=== PATIENT | female | born 1965 | race Caucasian/White ===

== ENCOUNTER 2017-01-11 09:23 | Inpatient (IN) | payer BC ==
[~2017-01-11] VITALS: Ht 162.6 cm; Wt 62.3 kg
[~2017-01-11 09:23] MED LIST: CARAFATE1 G1 PO; Motrin,Rufen800 MG PO; SPIRIVA18 MCG PO; SUNMARK OMEPRAZ20 M1 PO; SYNTHROID0.137 MG PO; TYLENOL W/CODEI1 TA4 PO
[2017-01-11 09:30] VITALS: BP 145/80
[2017-01-11] MEDS ORDERED: CLARITIN10 MG PO (09:30)
[2017-01-11] MEDS ORDERED: PREVACID30 M2 PO (09:30)
[2017-01-11] MEDS ORDERED: PROAIR HFA8.5 GM INH (09:30)
[2017-01-11 09:52] LABS: BASO % 0.4 % (0.0-1.0); EOS # 0.6 10*3/uL (0.0-0.4); EOS % 7.6 % (1.0-4.0); HEMATOCRIT 40.6 % (37.0-47.0); HEMOGLOBIN 13.4 g/dl (12.0-16.0); LYMPH # 2.8 10*3/uL (1.3-4.4); LYMPH % 39.3 % (27.0-41.0); MEAN CELL VOLUME 91.4 fl (81.0-99.0); MEAN CORPUSCULAR HGB 30.2 pg (27.0-31.0); MEAN PLATELET VOLUME 9.5 fl (9.6-12.3); MONO # 0.8 10*3/uL (0.1-1.0); MONO % 10.4 % (3.0-9.0); PLATELET COUNT AUTOMATED 286 10*3/uL (130-400); RED BLOOD COUNT 4.44 10*6/uL (4.10-5.10); RED CELL DISTRI WIDTH 13.4 % (0-14.5); WHITE BLOOD COUNT 7.2 10*3/uL (4.8-10.8)
[2017-01-11 10:01] LABS: INTERNATIONAL NORM RATIO 1.1 (2.0-3.5); PROTHROMBIN TIME 11.2 SECONDS (9.0-12.4)
[2017-01-11 10:09] LABS: ALBUMIN 3.8 gm/dl (3.1-4.5); ALKALINE PHOSPHATASE 124 U/L (45-117); BILIRUBIN, TOTAL 0.4 mg/dl (0.2-1.0); BUN 14 mg/dl (7-24); CARBON DIOXIDE 28 mmol/L (21-32); CHLORIDE 105 mmol/L (98-107); CKMB 4.6 ng/ml (0.5-3.6); CPK 286 U/L (26-192); EST GLOM FILT AFRICAN AMERICAN > 60 ml/min; GLUCOSE 92 mg/dL (65-99); MAGNESIUM 1.9 mg/dL (1.5-2.1); POTASSIUM 4.3 mmol/L (3.5-5.1); SGOT/AST 25 IU/L (3-35); SGPT/ALT 24 U/L (12-78); SODIUM 141 mmol/L (136-145); TOTAL PROTEIN 8.2 gm/dL (6.4-8.2)
[2017-01-11 10:24] LABS: C-REACTIVE PROTEIN < 0.29 MG/DL (0-0.3); TROPONIN I < 0.015 ng/ml (<0.045)
[2017-01-11] MEDS ORDERED: BIAXIN FILMTAB250 MG PO (12:04)
[2017-01-11 15:56] VITALS: BP 106/69
[2017-01-11 20:00] VITALS: BP 102/56
[2017-01-12] VITALS: BP 91/58
[2017-01-12 06:44] LABS: BASO % 0.1 % (0.0-1.0); HEMATOCRIT 37.8 % (37.0-47.0); HEMOGLOBIN 12.4 g/dl (12.0-16.0); IG # 0.1 10*3/uL (0.0-0.1); LYMPH # 1.5 10*3/uL (1.3-4.4); LYMPH % 11.6 % (27.0-41.0); MEAN CELL VOLUME 91.5 fl (81.0-99.0); MEAN CORPUSCULAR HGB CONC 32.8 g/dl (33.0-37.0); MEAN PLATELET VOLUME 9.8 fl (9.6-12.3); MONO # 0.6 10*3/uL (0.1-1.0); NEUT # 10.5 10*3/uL (2.3-7.9); NEUT % 82.4 % (47.0-73.0); PLATELET COUNT AUTOMATED 281 10*3/uL (130-400); RED BLOOD COUNT 4.13 10*6/uL (4.10-5.10); RED CELL DISTRI WIDTH 13.5 % (0-14.5); WHITE BLOOD COUNT 12.7 10*3/uL (4.8-10.8)
[2017-01-12 07:29] LABS: CHLORIDE 103 mmol/L (98-107); POTASSIUM 4.4 mmol/L (3.5-5.1); SODIUM 138 mmol/L (136-145)
[2017-01-12 07:43] LABS: ALBUMIN 3.4 gm/dl (3.1-4.5); ALKALINE PHOSPHATASE 104 U/L (45-117); BILIRUBIN, TOTAL 0.3 mg/dl (0.2-1.0); BUN 19 mg/dl (7-24); CARBON DIOXIDE 26 mmol/L (21-32); CHOLESTEROL 230 mg/dL (<200); EST GLOM FILT AFRICAN AMERICAN > 60 ml/min; FREE T4 1.33 ng/dl (0.76-1.46); GLUCOSE 195 mg/dL (65-99); HDL CHOLESTEROL 104 mg/dl (40-60); LDL CHOLESTEROL 110 mg/dL (9-159); SGOT/AST 15 IU/L (3-35); SGPT/ALT 21 U/L (12-78); TOTAL PROTEIN 7.4 gm/dL (6.4-8.2); TRIGLYCERIDES 81 mg/dl (<150); VLDL CHOLESTEROL 16 mg/dL (6-40)
[2017-01-12 08:00] VITALS: BP 102/88
[2017-01-12 12:00] VITALS: BP 118/71
[2017-01-12 16:00] VITALS: BP 100/76
[2017-01-12 20:00] VITALS: BP 107/56
[2017-01-13] VITALS: BP 100/60
[2017-01-13 08:00] VITALS: BP 106/60
[2017-01-13 11:58] VITALS: BP 104/73
[2017-01-13] MEDS ORDERED: VITAMIN D50000 I3 PO (12:20)
[2017-01-13] MEDS ORDERED: PREDNISONE10 MG PO (12:20)
[2017-01-13] MEDS ORDERED: LEVAQUIN500 M2 PO (12:23)
== END 2017-01-13 12:40 | disposition home or self-care (01) | DRG 192 ==
LOC: ED 09:23 → EDHOLD 10:55 → 4E 10:55
PROVIDERS: Emergency Medicine; Internal Medicine Hospice and Palliative Medicine
DX: J44.1 Chronic obstructive pulmonary disease with (acute) exacerbation (principal); I10 Essential (primary) hypertension; E03.9 Hypothyroidism, unspecified; J45.909 Unspecified asthma, uncomplicated; E11.9 Type 2 diabetes mellitus without complications; E55.9 Vitamin D deficiency, unspecified; K21.9 Gastro-esophageal reflux disease without esophagitis; Z82.49 Family history of ischemic heart disease and other diseases of the circulatory system; Z80.8 Family history of malignant neoplasm of other organs or systems; Z83.6 Family history of other diseases of the respiratory system; Z87.891 Personal history of nicotine dependence; Z90.5 Acquired absence of kidney; Z88.0 Allergy status to penicillin; Z79.899 Other long term (current) drug therapy

== ENCOUNTER 2018-12-04 20:20 | Inpatient (IN) | payer BC ==
[~2018-12-04] VITALS: Ht 162.6 cm; Wt 64.0 kg
--- NOTE | ~2018-12-04 | EKG ---
[place], [place] ELECTROCARDIOGRAM REPORT NAME: MARTIN JUAREZ UNIT #: [id number] ROOM: 502 DOCTOR: JAIDA DRAFT REPORT BIRTHDATE: [birth year] [facility] Test Date: 2018-12-04 Test Time: 20:50:57 Pat Name: MARTIN JUAREZ Department: Room: [facility] Gender: F Concession Manager: Ben Cordero : 1965 Requested By: GAMA MEZA PA-C Order Number: [id number] Reading MD: Asim Villegas MD Measurements Intervals Sidney Rate: 127 P: 87 ID: 134 QRS: 93 QRSD: 82 T: 46 QT: 273 QTc: 397 Interpretive Statements Sinus tachycardia Ventricular premature complex Aberrant complex Probable left atrial enlargement Borderline right axis deviation Abnormal R-wave progression, late transition Baseline wander in lead(s) V2 Electronically Signed On 12-09-2018 9:37:59 PST by Asim Villegas MD CM:EKGRPT:ELECTROCARDIOGRAM REPORT 49 6 GAMA MEZA PA-C EPIPHANY DRAFT REPORT GAMA MEZA PA-C
--- NOTE | ~2018-12-04 | CON ---
[place], [place] REPORT OF CONSULTATION NAME: MARTIN JUAREZ [facility] #: [id number] UNIT #: [id number] ROOM: 502 DOCTOR: MITCH FELIPE MD BIRTHDATE: [birth year] DOS: 12/06/2018 CONSULTATION REQUESTED: Hospitalist services. REASON FOR CONSULTATION: Assess the patient's acute exacerbation of chronic obstructive pulmonary disease. HISTORY OF PRESENT ILLNESS: The patient is a 53-year-old white female patient who has been reported symptoms of increased shortness of breath for the past 3 weeks. She was also complaining of excessive wheezing and tightness in the chest. The patient stated that she does not have any cough. However, during the assessment, she has been noted with symptoms of cough at times. She denies symptoms of hemoptysis. Currently, the patient sitting on the bed at time of the assessment using oxygen supplementation nasal cannula. She has been admitted to the hospital on of this month. She had a CTA of the chest done yesterday as well for the patient that excluded any evidence of pulmonary embolism. REVIEW OF SYSTEMS: CONSTITUTIONAL: Fatigue and tiredness noted without any symptoms of fever or chills. EYES: Denies burning, redness, or tenderness. EAR, NOSE, THROAT SYMPTOMS: Denies sore throat, hoarseness, otalgia, postnasal drainage or epistaxis. CARDIOVASCULAR: Denied anginal pain, edema, or pain of the lower extremities. GASTROINTESTINAL: Denies dysphagia, nausea, vomiting, diarrhea, abdominal pain, hematemesis, melena, or hematochezia. SKIN: Denies any lesions or rashes. GENITOURINARY: No dysuria, suprapubic pain, or hematuria. MUSCULOSKELETAL: No acute joint pain, redness, or tenderness. CENTRAL NERVOUS SYSTEM: Denies dizziness, headache, diplopia, or syncopal episodes. Remaining systems were reviewed with the patient, they were noted all negative. PAST MEDICAL HISTORY: 1. Reported with a diagnosis of chronic obstructive pulmonary disease as per patient, taking respiratory medications for that and managed by primary care physician, ____ 2. History of bronchial asthma. 3. Gastroesophageal reflux. 4. Hypothyroidism. 5. History of hyperlipidemia. PAST SURGICAL HISTORY: Noted partial nephrectomy in the right side. SOCIAL HISTORY: The patient stated that she is , lives at home, has 2 children. Smoking was noted from a teenager half a pack of cigarettes per day that was discontinued approximately in 2011. There was no history of alcohol use. Illicit drug use was reported. [place], [place] REPORT OF CONSULTATION NAME: MARTIN JUAREZ UNIT #: [id number] ROOM: [facility] DOCTOR: MITCH FELIPE MD BIRTHDATE: [birth year] CURRENT MEDICATIONS: Administered were noted as use of Lantus insulin, vitamin D, loratadine, Lovenox for deep vein thrombosis prophylaxis, Solu-Medrol 60 mg b.i.d., Mucinex, gemfibrozil, Protonix, levothyroxine, Rocephin, and Zithromax. ALLERGIES: NOTED WITH ALLERGY TO PENICILLINS. PHYSICAL EXAMINATION: GENERAL: A 53-year-old white female, currently sitting comfortable on the bed without any acute distress this morning of assessment. Height of 5 feet 4 inches, weight of 141 pounds, BMI 24.2. VITAL SIGNS: For the patient which were recorded normal in the last 48 hours. The respiratory rate range between 18-20. Heart rate of 90-126 on admission. Blood pressure 107/78-116/76. Pulse oxygen saturation recorded as 96% saturation at rest. Oxygen saturation on room air was recorded as 94% saturation. HEENT: Examination shows head was atraumatic. Eyes nonicterus. NECK: Supple. CARDIOVASCULAR: S1, S2 is audible. LUNGS: The patient has moderate degree breath sounds with expiratory wheezing. There were no crackles. ABDOMEN: Soft and nontender. Bowel sounds present. EXTREMITIES: Noted without any acute edema, clubbing or cyanosis. MUSCULOSKELETAL: Without any acute deformities. CENTRAL NERVOUS SYSTEM: The patient's cranial nerves 2-12 intact. LABORATORY DATA: CBC today: WBC count 15.9, hemoglobin 10.8, platelet count was normal. BMP of this morning, glucose 307, BUN and creatinine was normal. Admission CBC on 12/04/2018, WBC count 13,000, hemoglobin and hematocrit was normal. Lactic acid 2.7 on admission. PT/PTT were noted normal on 12/04/2018. CMP of the patient 12/04/2018, glucose 247, BUN normal, creatinine 1.06. Sodium rather 128, potassium normal, chloride of 93. LFTs normal except alkaline phosphatase minimally elevated 170. Chest x-ray 2 views, which was done on admission was noted without any acute pulmonary infiltration. CTA of the chest that was done on 12/05/2018, the patient does not show any evidence of pulmonary embolism. A 3 mm nodule identified, incidental finding in the right middle lobe. Bilateral changes appear like panlobular emphysema present in the upper lungs as well as in the lower lobes as well. There was no visible lymph nodes. IMPRESSION: 1. The patient will be currently admitted to the hospital noted with acute exacerbation of chronic obstructive pulmonary disease with acute bronchitis. There was no evidence of pneumonia. 2. Solitary pulmonary nodule right middle lobe at this time, required further assessment with outpatient assessment. We will just followup CT scan in about 6 months. 3. The patient with panlobular emphysema finding, rule out alpha-1 antitrypsin deficiency as well. 4. Past history of tobacco use as well. [place], [place] REPORT OF CONSULTATION NAME: MARTIN JUAREZ UNIT #: [id number] ROOM: [facility] DOCTOR: HOMER WYATT MD,MITCH BIRTHDATE: [birth year] PLAN OF MANAGEMENT: At this time, the patient is getting Solu-Medrol 60 mg b.i.d., the dose will be decreased to 40 mg b.i.d. for this patient as well. Bronchodilators. Continuation of the antibiotic for acute bronchitis management. Usual care. Ambulation was encouraged. Supportive therapy, plan of management and care plan for the patient as well. Alpha-1 antitrypsin level should be obtained as an outpatient to exclude the alpha 1 antitrypsin deficiency in this patient with current CT scan of the chest appearance. Followup CT scan of the chest should be done in 6 months to assess the current small pulmonary nodule. MITCH CORONEL MD CM:CONSTR:REPORT OF CONSULTATION 1227 12/06/18 1702 interface
--- NOTE | ~2018-12-04 | PR ---
[place], [place] PROGRESS NOTE NAME: MARTIN JUAREZ UNIT #: [id number] ROOM: 502 DOCTOR: HOMER WYATT MD,MITCH BIRTHDATE: [birth year] DOS: 12/07/2018 PULMONARY PROGRESS NOTE SUBJECTIVE: She has been noted comfortable at this time, resting in the bed without any acute distress. Denies symptoms of fever or chills. Coughing and other symptoms have been gradually subsiding. OBJECTIVE: VITAL SIGNS: Which have been recorded showed normal temperature, respiratory rate 18, heart rate 94, blood pressure 117/61. The pulse oxygen saturation on room air was 93% saturation. HEENT: Head was atraumatic. Eyes nonicterus. NECK: Supple. CARDIOVASCULAR: S1 and S2 audible. LUNGS: The patient was noted clear of any wheezing or crackles. ABDOMEN: Soft, nontender. Bowel sounds present. EXTREMITIES: Without any acute edema. IMPRESSION: 1. The patient with resolving acute exacerbation of chronic obstructive pulmonary disease, acute bronchitis, and other symptoms. 2. History of nicotine abuse previously. PLAN OF MANAGEMENT: Abstinence from tobacco use recommended. The patient could be discharged home today. Outpatient assessment to rule out alpha-1 antitrypsin deficiency is recommended. Supportive care, therapy, plan of management and care plan. MITCH CORONEL MD CM:PNTRANS 1230 [id number] MITCH WYATT MD 12/08/18 0037 interface
[~2018-12-04 20:20] MED LIST changes: +BIAXIN FILMTAB250 MG PO; +CLARITIN10 MG PO; +LEVAQUIN500 M2 PO; +PREDNISONE10 MG PO; +PREVACID30 M2 PO; +PROAIR HFA8.5 GM INH; +VITAMIN D50000 I3 PO
[2018-12-04 20:26] VITALS: BP 107/82
[2018-12-04 20:50] LABS: BASO % 0.2 % (0.0-1.0); EOS # 0.1 10*3/uL (0.0-0.4); EOS % 0.5 % (1.0-4.0); HEMATOCRIT 43.9 % (37.0-47.0); HEMOGLOBIN 14.6 g/dl (12.0-16.0); LYMPH # 3.1 10*3/uL (1.3-4.4); LYMPH % 24.1 % (27.0-41.0); MEAN CORPUSCULAR HGB 29.6 pg (27.0-31.0); MEAN CORPUSCULAR HGB CONC 33.3 g/dl (33.0-37.0); MEAN PLATELET VOLUME 10.6 fl (9.6-12.3); MONO # 1.4 10*3/uL (0.1-1.0); MONO % 10.7 % (3.0-9.0); NEUT # 8.3 10*3/uL (2.3-7.9); NEUT % 63.7 % (47.0-73.0); PLATELET COUNT AUTOMATED 329 10*3/uL (130-400); RED BLOOD COUNT 4.93 10*6/uL (4.10-5.10); RED CELL DISTRI WIDTH 11.9 % (0-14.5)
--- NOTE | 2018-12-04 20:57 | NUR ---
CRITICAL LAB 2.7 LACTIC ACID.. GAMA MEZA PA-C NOTIFIED
[2018-12-04 21:01] LABS: ACT PARTIAL THROMBO TIME 22.8 SECONDS (20.8-31.5); INTERNATIONAL NORM RATIO 1.2 (2.0-3.5)
[2018-12-04 21:10] LABS: BILIRUBIN NEGATIVE (NEGATIVE); BLOOD 2+ (NEGATIVE); CLARITY CLEAR (CLEAR); COLOR YELLOW (YELLOW); GLUCOSE 3+ (NEGATIVE); KETONE NEGATIVE (NEGATIVE); LEUKO ESTERASE NEGATIVE (NEGATIVE); NITRITE NEGATIVE (NEGATIVE); UROBILINOGEN 0.2 E.U./dl (0.2-1.0)
[2018-12-04 21:15] LABS: ALBUMIN 3.1 gm/dl (3.1-4.5); ALKALINE PHOSPHATASE 170 U/L (45-117); BUN 14 mg/dl (7-24); CHLORIDE 93 mmol/L (98-107); CREATININE 1.06 mg/dL (0.55-1.02); SGOT/AST 12 IU/L (3-35); SGPT/ALT 23 U/L (12-78); SODIUM 128 mmol/L (136-145); TOTAL PROTEIN 7.7 gm/dL (6.4-8.2)
[2018-12-04 21:18] LABS: TROPONIN I < 0.015 ng/ml (<0.045)
[2018-12-04 21:20] LABS: BACTERIA 1+; EPITHELIAL CELLS 0-2; WBC 0-2 wbc/hpf (0-5)
[2018-12-04 22:12] VITALS: BP 112/66
[2018-12-04 23:00] VITALS: BP 111/63
[2018-12-04 23:05] VITALS: BP 111/63
--- NOTE | 2018-12-04 23:05 | NUR ---
A 53, admitted to 5E, under the services of KARISHMA Thacker DO with a diagnosis of COPD EXAC,SEPSIS,HYPONATREMIA. Chief complaint is SHORTNESS OF BREATHE, BRONCHITIS FOR 3 WEEKS. Patient arrived via bed from ER. Monitor applied. Initial assessment completed. Vital signs taken and recorded. KARISHMA THACKER DO notified of admission to the unit. Orders received. See assessment for past medical history, medications and allergies. Patient and/or family oriented to unit. [address] visitation policy reviewed. Clothing/patient valuable form completed. KEISHA WAYNE
[2018-12-04] MEDS ORDERED: VITAMIN D31000 UNI1 PO (23:21)
[2018-12-04] MEDS ORDERED: DOXYCYCLINE100 MG PO (23:25)
[2018-12-04] MEDS ORDERED: LOPID600 M1 PO (23:26)
--- NOTE | 2018-12-04 23:38 | NUR ---
SPOKE WITH DR. Earl DELA CRUZ AWARE PT IN ROOM AND NOTIFIED OF MEDICATIONS BEING VERIFIED.
[2018-12-05] VITALS: BP 111/63
--- NOTE | 2018-12-05 00:55 | NUR ---
IV started right forearm with #22 angiocath after 1 attempts. The IV site was prepped with Chloraprep. Heparin lock attached. Sterile dressing applied. Patient tolerated precedure well. Procedure performed according to [facility] policy & procedure. KEISHA WAYNE
--- NOTE | 2018-12-05 04:00 | NUR ---
SLEEPING IN BED. RESP-EASY AND REGULAR. CALL LIGHT IN REACH.
--- NOTE | 2018-12-05 06:00 | NUR ---
RESTING IN BED. NO C/O AT THIS TIME. TOLERATED ROUTINE MED WITH NO PROBLEM. CALL LIGHT IN REACH.
[2018-12-05 06:24] LABS: BASO % 0.1 % (0.0-1.0); HEMATOCRIT 40.3 % (37.0-47.0); HEMOGLOBIN 13.5 g/dl (12.0-16.0); LYMPH # 1.4 10*3/uL (1.3-4.4); LYMPH % 15.4 % (27.0-41.0); MEAN CELL VOLUME 90.4 fl (81.0-99.0); MEAN CORPUSCULAR HGB 30.3 pg (27.0-31.0); MEAN CORPUSCULAR HGB CONC 33.5 g/dl (33.0-37.0); MEAN PLATELET VOLUME 11.1 fl (9.6-12.3); MONO # 0.2 10*3/uL (0.1-1.0); MONO % 1.9 % (3.0-9.0); NEUT # 7.3 10*3/uL (2.3-7.9); NEUT % 81.3 % (47.0-73.0); PLATELET COUNT AUTOMATED 277 10*3/uL (130-400); RED BLOOD COUNT 4.46 10*6/uL (4.10-5.10)
[2018-12-05 07:03] LABS: ALBUMIN 2.7 gm/dl (3.1-4.5); ALKALINE PHOSPHATASE 154 U/L (45-117); BUN 15 mg/dl (7-24); CHLORIDE 103 mmol/L (98-107); CHOLESTEROL 157 mg/dL (<200); CREATININE 0.92 mg/dL (0.55-1.02); HDL CHOLESTEROL 44 mg/dl (40-60); LDL CHOLESTEROL 95 mg/dL (9-159); PHOSPHOROUS 4.4 mg/dL (2.5-4.9); POTASSIUM 4.4 mmol/L (3.5-5.1); SGOT/AST 7 IU/L (3-35); SGPT/ALT 21 U/L (12-78); SODIUM 138 mmol/L (136-145); TRIGLYCERIDES 92 mg/dl (<150); VLDL CHOLESTEROL 18 mg/dL (6-40)
[2018-12-05 07:09] LABS: THYROID STIM HORMONE (HS) 0.853 uIU/ml (0.358-4.75)
[2018-12-05 08:00] VITALS: BP 115/65
--- NOTE | 2018-12-05 09:00 | NUR ---
Gaming Surveillance Observer in to talk to patient. Patient states lives at home with friend. There are few steps in the home. Physician: geeta Pharmacy: [facility] Home health services: none Patient's level of ADLs: INDEPENDENT Patient has working utilities: all working DME: none Follow-up physician's appointment after d/c: will be made by hospitalist nurse director upon discharge Does patient want to access PORTAL?: no Discharge plan discussed with patient, patient lives at home with friend, she states she is independent in adls and ambualtion, works, drives, patient states she will be going home when able and denies any home needs. case management will follow. HOLLIS JANSEN
[2018-12-05 09:11] LABS: VITAMIN D, 25-HYDROXY 46.2 ng/mL (30-100)
--- NOTE | 2018-12-05 10:27 | NUR ---
I NOTIFIED DR CORONEL OF NEW CONSULT ORDER.
[2018-12-05 12:00] VITALS: BP 116/79
--- NOTE | 2018-12-05 15:00 | NUR ---
ASSUMED CARE FOR THIS PT AT THIS TIME. PT AWAKE DURING BEDSIDE SHIFT REPORT. NO C/O VOICED AT PRESENT TIME. CALL LIGHT IN REACH.
[2018-12-05 16:00] VITALS: BP 103/63
--- NOTE | 2018-12-05 17:00 | NUR ---
DR. GOMEZ NOTIFIED OF STAT GLUCOSE REFLEX RESULTS. ORDERED TO ADMINISTER MAX SS COVERAGE OF 14 UNITS OF INSULIN AND RECHECK IN 1 HR.
--- NOTE | 2018-12-05 19:32 | NUR ---
DR. Janet DELA CRZU NOTIFIED OF STAT GLUCOSE REFLUX OF 483. OK TO ADMINISTER 14 UNITS OF INSULIN NOW.
--- NOTE | 2018-12-05 19:39 | NUR ---
PT TEACHING GIVEN ON DRAWING UP INSULIN AND SELF INJECTING. PT DEMONSTRATED TECHNIQUE AND ADMINISTERED INSULIN INTO ABD W/OUT ANY DIFF.
[2018-12-05 20:00] VITALS: BP 96/82
--- NOTE | 2018-12-05 20:00 | NUR ---
RESTING IN BED WITH HOB ELEVATED RECEIVING AEROSOL TX. LUNGS CLEAR BUT DIMINISHED BILATEARLLY. NO COUGH NOTED AT THIS TIME. NO DISTRESS NOTED; PT. VOICES NO C/O AT THIS TIME. CALL LIGHT WITHIN REACH.
--- NOTE | 2018-12-05 22:00 | NUR ---
BLOOD SUGAR 278; COVERAGE GIVEN PER EMAR.
--- NOTE | 2018-12-05 22:15 | NUR ---
IV started right forearm with #22 protective cath after 2 attempts. Site prepped with Chloroprep. Sterile dressing applied. Patient tolerated procedure well. IV infusing at cc/hr. TIA ORTEGA
[2018-12-06] VITALS: BP 107/68
--- NOTE | 2018-12-06 02:00 | NUR ---
RESTING IN BED WITH HOB ELEVATED. 02 INTACT. PT. VOICES NO C/O AT THIS TIME. CALL LIGHT WITHIN REACH.
--- NOTE | 2018-12-06 06:30 | NUR ---
BLOOD SUGAR 299; COVERAGE GIVEN PER EMAR.
[2018-12-06 07:23] LABS: BASO % 0.1 % (0.0-1.0); LYMPH # 1.2 10*3/uL (1.3-4.4); LYMPH % 7.8 % (27.0-41.0); MEAN CELL VOLUME 92.4 fl (81.0-99.0); MEAN CORPUSCULAR HGB 30.3 pg (27.0-31.0); MEAN CORPUSCULAR HGB CONC 32.7 g/dl (33.0-37.0); MEAN PLATELET VOLUME 11.1 fl (9.6-12.3); MONO # 0.6 10*3/uL (0.1-1.0); MONO % 3.7 % (3.0-9.0); NEUT # 13.8 10*3/uL (2.3-7.9); NEUT % 87.1 % (47.0-73.0); PLATELET COUNT AUTOMATED 244 10*3/uL (130-400); RED BLOOD COUNT 3.57 10*6/uL (4.10-5.10); WHITE BLOOD COUNT 15.9 10*3/uL (4.8-10.8)
[2018-12-06 07:25] LABS: HEMOGLOBIN 10.8 g/dl (12.0-16.0)
[2018-12-06 07:37] LABS: BUN 21 mg/dl (7-24); CHLORIDE 102 mmol/L (98-107); CREATININE 0.72 mg/dL (0.55-1.02); POTASSIUM 3.7 mmol/L (3.5-5.1); SODIUM 136 mmol/L (136-145)
[2018-12-06 08:00] VITALS: BP 104/62
--- NOTE | 2018-12-06 09:00 | NUR ---
case management visits with patient, patient will be going home when able and denies any home needs
--- NOTE | 2018-12-06 10:44 | NUR ---
Spoke with patient and provided a diabetic diet copy and verbal instructions. Patient was interested in following the diabetic diet and responded well to the need to change. Encouraged any further questions or concerns to be directed to myself or Farida Oliveros RDN,ELLIE. Maria Teresa Vaughn [facility] Dietetic Student
[2018-12-06 12:00] VITALS: BP 106/62
[2018-12-06 16:00] VITALS: BP 97/36
[2018-12-06 20:00] VITALS: BP 112/61
[2018-12-07] VITALS: BP 106/62
[2018-12-07 06:15] LABS: BASO % 0.1 % (0.0-1.0); HEMATOCRIT 33.1 % (37.0-47.0); HEMOGLOBIN 10.9 g/dl (12.0-16.0); LYMPH # 1.1 10*3/uL (1.3-4.4); LYMPH % 6.2 % (27.0-41.0); MEAN CELL VOLUME 92.2 fl (81.0-99.0); MEAN CORPUSCULAR HGB 30.4 pg (27.0-31.0); MEAN CORPUSCULAR HGB CONC 32.9 g/dl (33.0-37.0); MEAN PLATELET VOLUME 11.4 fl (9.6-12.3); MONO # 0.5 10*3/uL (0.1-1.0); MONO % 2.8 % (3.0-9.0); NEUT # 16.5 10*3/uL (2.3-7.9); NEUT % 89.5 % (47.0-73.0); PLATELET COUNT AUTOMATED 258 10*3/uL (130-400); RED BLOOD COUNT 3.59 10*6/uL (4.10-5.10); RED CELL DISTRI WIDTH 12.4 % (0-14.5); WHITE BLOOD COUNT 18.4 10*3/uL (4.8-10.8)
[2018-12-07 06:43] LABS: BUN 26 mg/dl (7-24); CHLORIDE 102 mmol/L (98-107); CREATININE 0.78 mg/dL (0.55-1.02); POTASSIUM 4.1 mmol/L (3.5-5.1); SODIUM 135 mmol/L (136-145)
[2018-12-07 08:00] VITALS: BP 117/61
--- NOTE | 2018-12-07 09:21 | NUR ---
case management visits with patient, patient denies any home needs
[2018-12-07] MEDS ORDERED: NOVOLOG FL100 UNIT/1 SQ (09:42)
[2018-12-07] MEDS ORDERED: AVPAK AZITHROM250 MG PO (09:42)
[2018-12-07] MEDS ORDERED: LANTUS SOL100 UNIT/1 SC (09:42)
[2018-12-07] MEDS ORDERED: PREDNISONE10 MG PO (09:42)
--- NOTE | 2018-12-07 10:45 | NUR ---
Discharge instructions reviewed with patient/family. Patient receptive and verbalizes understanding. Follow-up care arranged. Written instructions given to patient/family. HERMAN BEDOLLA
--- NOTE | 2018-12-07 11:16 | NUR ---
PATIENT TRANSPORTED OFF FLOOR IN WHEELCHAIR BY PA AT THIS TIME ACCOMPANIED BY DAUGHTER.
== END 2018-12-07 11:16 | disposition home or self-care (01) | DRG 871 ==
LOC: ED 20:20 → EDHOLD 22:15 → 5E 22:15
PROVIDERS: Internal Medicine; Physician Assistant; ADMIT Internal Medicine
DX: A41.9 Sepsis, unspecified organism (principal); J18.9 Pneumonia, unspecified organism; E43 Unspecified severe protein-calorie malnutrition; E87.1 Hypo-osmolality and hyponatremia; E87.2 Acidosis; E11.65 Type 2 diabetes mellitus with hyperglycemia; R31.29 Other microscopic hematuria; E03.9 Hypothyroidism, unspecified; J20.9 Acute bronchitis, unspecified; R91.1 Solitary pulmonary nodule; E78.5 Hyperlipidemia, unspecified; K21.9 Gastro-esophageal reflux disease without esophagitis; J43.1 Panlobular emphysema; E55.9 Vitamin D deficiency, unspecified; E78.00 Pure hypercholesterolemia, unspecified; Z88.0 Allergy status to penicillin; Z98.51 Tubal ligation status; Z82.49 Family history of ischemic heart disease and other diseases of the circulatory system; Z83.3 Family history of diabetes mellitus; Z80.8 Family history of malignant neoplasm of other organs or systems; Z81.1 Family history of alcohol abuse and dependence; Z82.5 Family history of asthma and other chronic lower respiratory diseases; Z87.891 Personal history of nicotine dependence; Z79.899 Other long term (current) drug therapy; Z68.24 Body mass index [BMI] 24.0-24.9, adult

== ENCOUNTER → 2019-08-04 | Outpatient (CLI) | payer BC ==
[~2019-08-04] MED LIST changes: +AVPAK AZITHROM250 MG PO; +DOXYCYCLINE100 MG PO; +LANTUS SOL100 UNIT/1 SC; +LOPID600 M1 PO; +NOVOLOG FL100 UNIT/1 SQ; +VITAMIN D31000 UNI1 PO
== END | disposition home or self-care (01) ==
LOC: RESCLI 01:36
DX: J44.9 Chronic obstructive pulmonary disease, unspecified (principal); E11.9 Type 2 diabetes mellitus without complications; E03.9 Hypothyroidism, unspecified; K21.9 Gastro-esophageal reflux disease without esophagitis; B35.1 Tinea unguium; E78.5 Hyperlipidemia, unspecified; J30.2 Other seasonal allergic rhinitis; Z79.899 Other long term (current) drug therapy; Z88.0 Allergy status to penicillin

== ENCOUNTER → 2019-08-28 | Outpatient (CLI) | payer BC ==
[2019-08-28 08:17] LABS: BASO % 0.3 % (0.0-1.0); EOS # 0.3 10*3/uL (0.0-0.4); EOS % 4.3 % (1.0-4.0); HEMATOCRIT 42.2 % (37.0-47.0); HEMOGLOBIN 13.6 g/dl (12.0-16.0); LYMPH % 38.1 % (27.0-41.0); MEAN CELL VOLUME 91.3 fl (81.0-99.0); MEAN CORPUSCULAR HGB 29.4 pg (27.0-31.0); MEAN CORPUSCULAR HGB CONC 32.2 g/dl (33.0-37.0); MEAN PLATELET VOLUME 10.2 fl (9.6-12.3); NEUT # 3.4 10*3/uL (2.3-7.9); NEUT % 43.9 % (47.0-73.0); PLATELET COUNT AUTOMATED 373 10*3/uL (130-400); RED BLOOD COUNT 4.62 10*6/uL (4.10-5.10); RED CELL DISTRI WIDTH 12.4 % (0-14.5); WHITE BLOOD COUNT 7.7 10*3/uL (4.8-10.8)
[2019-08-28 09:03] LABS: BUN 14 mg/dl (7-24); CHLORIDE 106 mmol/L (98-107); CHOLESTEROL 220 mg/dL (<200); CREATININE 0.87 mg/dL (0.55-1.02); POTASSIUM 3.8 mmol/L (3.5-5.1); SODIUM 141 mmol/L (136-145); TRIGLYCERIDES 126 mg/dl (<150); VLDL CHOLESTEROL 25 mg/dL (6-40)
[2019-08-28 09:13] LABS: HDL CHOLESTEROL 67 mg/dl (40-60); LDL CHOLESTEROL 128 mg/dL (9-159)
== END | disposition home or self-care (01) ==
LOC: LAB 07:32
PROVIDERS: Internal Medicine
DX: E11.9 Type 2 diabetes mellitus without complications (principal)

== ENCOUNTER → 2019-09-06 | Outpatient (CLI) | payer BC | END | disposition home or self-care (01) | LOC: RESCLI 00:48 | DX: J44.9 Chronic obstructive pulmonary disease, unspecified (principal); E11.9 Type 2 diabetes mellitus without complications; E03.9 Hypothyroidism, unspecified; K21.9 Gastro-esophageal reflux disease without esophagitis; B35.1 Tinea unguium; E78.5 Hyperlipidemia, unspecified; J30.2 Other seasonal allergic rhinitis; Z79.899 Other long term (current) drug therapy; Z79.4 Long term (current) use of insulin; Z88.0 Allergy status to penicillin ==

== ENCOUNTER → 2019-12-16 | Outpatient (CLI) | payer BC ==
[2019-12-16 09:49] LABS: BASO % 0.5 % (0.0-1.0); EOS # 0.9 10*3/uL (0.0-0.4); EOS % 12.2 % (1.0-4.0); HEMATOCRIT 40.9 % (37.0-47.0); HEMOGLOBIN 13.2 g/dl (12.0-16.0); LYMPH % 40.1 % (27.0-41.0); MEAN CELL VOLUME 92.1 fl (81.0-99.0); MEAN CORPUSCULAR HGB 29.7 pg (27.0-31.0); MEAN CORPUSCULAR HGB CONC 32.3 g/dl (33.0-37.0); MEAN PLATELET VOLUME 10.7 fl (9.6-12.3); MONO # 1.1 10*3/uL (0.1-1.0); MONO % 15.4 % (3.0-9.0); NEUT # 2.3 10*3/uL (2.3-7.9); NEUT % 31.5 % (47.0-73.0); PLATELET COUNT AUTOMATED 319 10*3/uL (130-400); RED BLOOD COUNT 4.44 10*6/uL (4.10-5.10); RED CELL DISTRI WIDTH 13.5 % (0-14.5); WHITE BLOOD COUNT 7.4 10*3/uL (4.8-10.8)
[2019-12-16 10:01] LABS: BUN 15 mg/dl (7-24); CHLORIDE 104 mmol/L (98-107); CREATININE 0.84 mg/dL (0.55-1.02); POTASSIUM 3.6 mmol/L (3.5-5.1); SODIUM 139 mmol/L (136-145)
[2019-12-16 10:06] LABS: CHOLESTEROL 156 mg/dL (<200); HDL CHOLESTEROL 71 mg/dl (40-60); LDL CHOLESTEROL 69 mg/dL (9-159); TRIGLYCERIDES 81 mg/dl (<150); VLDL CHOLESTEROL 16 mg/dL (6-40)
== END | disposition home or self-care (01) ==
LOC: LAB 07:55
PROVIDERS: Internal Medicine
DX: E11.9 Type 2 diabetes mellitus without complications (principal)

== ENCOUNTER → 2019-12-20 | Outpatient (CLI) | payer BC | END | disposition home or self-care (01) | LOC: RESCLI 01:36 | DX: J44.9 Chronic obstructive pulmonary disease, unspecified (principal); E11.9 Type 2 diabetes mellitus without complications; E03.9 Hypothyroidism, unspecified; K21.9 Gastro-esophageal reflux disease without esophagitis; B35.1 Tinea unguium; E78.5 Hyperlipidemia, unspecified; J30.2 Other seasonal allergic rhinitis; Z79.84 Long term (current) use of oral hypoglycemic drugs; Z79.899 Other long term (current) drug therapy; Z90.5 Acquired absence of kidney; Z98.890 Other specified postprocedural states; Z88.0 Allergy status to penicillin ==

== ENCOUNTER → 2020-05-13 | Outpatient (CLI) | payer BC | END | disposition home or self-care (01) | LOC: RESCLI 00:41 | DX: J44.9 Chronic obstructive pulmonary disease, unspecified (principal); E11.9 Type 2 diabetes mellitus without complications; J30.2 Other seasonal allergic rhinitis; E78.5 Hyperlipidemia, unspecified; K21.9 Gastro-esophageal reflux disease without esophagitis; E03.9 Hypothyroidism, unspecified; E55.9 Vitamin D deficiency, unspecified; M19.90 Unspecified osteoarthritis, unspecified site; Z11.59 Encounter for screening for other viral diseases; Z12.11 Encounter for screening for malignant neoplasm of colon; Z12.12 Encounter for screening for malignant neoplasm of rectum; Z79.899 Other long term (current) drug therapy; Z79.84 Long term (current) use of oral hypoglycemic drugs; Z98.890 Other specified postprocedural states; Z87.891 Personal history of nicotine dependence; Z88.0 Allergy status to penicillin ==